=== PATIENT | female | born 1965 | race Two or more races ===

== ENCOUNTER 2023-06-07 05:30 | Day surgery (SDC) | payer OTHER ==
[2023-06-02 14:28] LABS: PARTIAL THROMBOPLASTIN TIME 22.9 SECONDS (22.0-34.0); PROTHROMBIN TIME 10.5 SECONDS (9.0-11.5)
[~2023-06-07 05:30] MED LIST: COZAAR50 MG PO; HYDRODIURIL12.5 MG PO; VYTORIN 10-201 EACH PO
== END 2023-06-07 11:00 | disposition home or self-care (01) ==
LOC: CIR.AMB 05:30
PROVIDERS: ATTEND Surgery Surgery of the Hand
DX: M65.841 Other synovitis and tenosynovitis, right hand (principal); Z20.822 Contact with and (suspected) exposure to COVID-19; Z88.0 Allergy status to penicillin; I10 Essential (primary) hypertension; E87.6 Hypokalemia